=== PATIENT | female | born 1985 | race African-American/Black ===

== ENCOUNTER 2016-06-13 19:43 | Inpatient (IN) | payer MEDICAID ==
[~2016-06-13] VITALS: Ht 165.1 cm; Wt 56.9 kg
[~2016-06-13 19:43] MED LIST: FOLI-17 PO; HYDR500C3 PO; OXYC20TA42 PO
[2016-06-13] MEDS ORDERED: SODIUM CHLORIDE 0.9% 1,000ML IVBOLUS ONE (20:30)
[2016-06-13] MEDS ORDERED: SODIUM CHLORIDE FLUSH 10ML SYR IVF ONE (20:30)
[2016-06-13] MEDS ORDERED: SODIUM CHLORIDE 0.9% 1,000 ML IV ONE (20:34)
[2016-06-13] MEDS ORDERED: ONDANSETRON 2MG/ML, 2ML IVPush ONE (21:00)
[2016-06-13] MEDS ORDERED: MORPHINE SULFATE 4 MG/ML, 1ML IVPush PRN (21:00)
[2016-06-13] MEDS ORDERED: ONDANSETRON 2MG/ML, 2ML ONE (21:38)
[2016-06-13] MEDS ORDERED: MORPHINE SULFATE 4 MG/ML, 1ML ONE (21:38)
[2016-06-13 21:41] LABS: ASPARTATE AMINO TRANSFERASE 27 U/L (15-37); BLOOD UREA NITROGEN 5 mg/dL (7-18)
[2016-06-13 22:23] LABS: DIFF TOTAL CELLS COUNTED 100 CELL DIFF
[2016-06-13 22:25] LABS: ANISOCYTOSIS 2+; MICROCYTOSIS 1+; POLYCHROMASIA 1+; SICKLE CELLS 2+; TARGET CELLS 1+; VERIFY COUNTS? YES
[2016-06-13 22:26] LABS: HOWELL-JOLLY BODIES 1+
[2016-06-13] MEDS ORDERED: ACETAMINOPHEN 325 MG TABLET PO PRN (23:00)
[2016-06-13] MEDS ORDERED: DIPHENHYDRAMINE 50 MG/ML, 1ML IVPush PRN (23:00)
[2016-06-13] MEDS ORDERED: ONDANSETRON 2MG/ML, 2ML IVP PRN (23:00)
[2016-06-13] MEDS: HYDROXYUREA 500 MG CAPSULE PO SCH (23:00)
[2016-06-13] MEDS: SODIUM CHLORIDE 0.9% 1,000 ML IV SCH (23:20)
[2016-06-13] MEDS: HYDROmorphone 2 MG/ML, 1ML IV PRN (23:38)
[2016-06-13 23:40] VITALS: BP 107/67
[2016-06-14 00:34] VITALS: BP 112/71
[2016-06-14] MEDS: HYDROmorphone 2 MG/ML, 1ML IV PRN ×5 (03:49→20:36)
[2016-06-14] MEDS: SODIUM CHLORIDE 0.9% 1,000 ML IV SCH ×3 (05:36→20:35)
[2016-06-14 05:54] LABS: ASPARTATE AMINO TRANSFERASE 29 U/L (15-37)
[2016-06-14 05:57] LABS: BLOOD UREA NITROGEN 7 mg/dL (7-18)
[2016-06-14 06:35] VITALS: BP 102/62
[2016-06-14 06:50] LABS: DIFF TOTAL CELLS COUNTED 100 CELL DIFF
[2016-06-14 06:58] LABS: ANISOCYTOSIS 2+; MICROCYTOSIS 1+; POLYCHROMASIA 1+; SICKLE CELLS 2+; TARGET CELLS 1+; VERIFY COUNTS? YES
[2016-06-14 07:05] LABS: HOWELL-JOLLY BODIES 1+
[2016-06-14] MEDS: HYDROXYUREA 500 MG CAPSULE PO SCH ×2 (11:06→20:48)
[2016-06-14 13:31] VITALS: BP 109/68
[2016-06-14 20:38] VITALS: BP 114/72
[2016-06-15] MEDS: HYDROmorphone 2 MG/ML, 1ML IV PRN ×3 (00:29→07:55)
[2016-06-15 02:17] VITALS: BP 112/78
[2016-06-15] MEDS: SODIUM CHLORIDE 0.9% 1,000 ML IV SCH ×2 (03:30→18:40)
[2016-06-15 05:01] LABS: BLOOD UREA NITROGEN 5 mg/dL (7-18)
[2016-06-15 05:42] LABS: DIFF TOTAL CELLS COUNTED 100 CELL DIFF
[2016-06-15 05:44] LABS: ANISOCYTOSIS 2+; VERIFY COUNTS? YES
[2016-06-15 05:45] LABS: POLYCHROMASIA 1+
[2016-06-15 05:46] LABS: HOWELL-JOLLY BODIES 1+; SICKLE CELLS 2+
[2016-06-15] MEDS: HYDROXYUREA 500 MG CAPSULE PO SCH ×2 (07:56→22:00)
[2016-06-15 08:00] VITALS: BP 116/71
[2016-06-15] MEDS ORDERED: OXYcodone IR 5MG TABLET PO PRN (10:00)
[2016-06-15] MEDS ORDERED: BISACODYL 10 MG SUPP PR PRN (10:00)
[2016-06-15] MEDS: POLYETHYLENE GLYCOL 17 GM PACKET PO SCH (11:35)
[2016-06-15] MEDS: DOCUSATE 100 MG CAPSULE PO SCH (11:35)
[2016-06-15] MEDS ORDERED: OXYC20TA2 PO (11:56)
[2016-06-15 13:45] VITALS: BP 103/61
[2016-06-15] MEDS: OXYcodone IR 5MG TABLET PO PRN ×3 (14:48→23:07)
[2016-06-15 20:25] VITALS: BP 113/69
[2016-06-16 01:46] VITALS: BP 101/54
[2016-06-16] MEDS: SODIUM CHLORIDE 0.9% 1,000 ML IV SCH ×2 (02:45→07:50)
[2016-06-16] MEDS: OXYcodone IR 5MG TABLET PO PRN (06:16)
[2016-06-16 07:00] VITALS: BP 114/71
[2016-06-16] MEDS: HYDROXYUREA 500 MG CAPSULE PO SCH (08:06)
[2016-06-16] MEDS: POLYETHYLENE GLYCOL 17 GM PACKET PO SCH (08:07)
[2016-06-16] MEDS: DOCUSATE 100 MG CAPSULE PO SCH (08:07)
[2016-06-16] MEDS ORDERED: OXYC20TA2 PO (09:37)
== END 2016-06-16 10:45 | disposition home or self-care (01) | DRG 812 ==
LOC: ED 21:55 → EDIP 22:11 → 3NE 23:10 → 3NW 06-14 08:36
PROVIDERS: ADMIT Internal Medicine
DX: D57.00 Hb-SS disease with crisis, unspecified (principal); E87.6 Hypokalemia; G89.29 Other chronic pain; M54.5 Low back pain; K59.00 Constipation, unspecified; D72.829 Elevated white blood cell count, unspecified; Z90.49 Acquired absence of other specified parts of digestive tract; Z88.0 Allergy status to penicillin; Z79.899 Other long term (current) drug therapy; Z83.2 Family history of diseases of the blood and blood-forming organs and certain disorders involving the immune mechanism
CPT/HCPCS: 36415; 71010; 72072; 76700; 80048; 80053; 81003; 83605; 83690; 83735; 84703; 85018; 85025; 85045; 86850; 86900; 86902; 86922; 86923; 87040; 93005; 96361; 96374; 96375; J1170; J2405; J7030

== ENCOUNTER 2016-07-05 23:40 | Emergency (ER) | payer MEDICAID ==
[~2016-07-05] VITALS: Ht 165.1 cm; Wt 58.6 kg
[~2016-07-05 23:40] MED LIST changes: +OXYC20TA2 PO
[2016-07-06 01:01] VITALS: BP 104/60
== END 2016-07-06 02:00 | disposition home or self-care (01) ==
LOC: ED 23:59
DX: S90.31XA Contusion of right foot, initial encounter (principal); W20.8XXA Other cause of strike by thrown, projected or falling object, initial encounter; Y93.89 Activity, other specified; Y92.099 Unspecified place in other non-institutional residence as the place of occurrence of the external cause; Y99.8 Other external cause status
CPT/HCPCS: 99284

== ENCOUNTER 2016-08-10 20:18 | Inpatient (IN) | payer MEDICAID ==
[~2016-08-10] VITALS: Ht 165.1 cm; Wt 59.6 kg
[2016-08-10] MEDS ORDERED: SODIUM CHLORIDE FLUSH 10ML SYR IVF ONE (21:00)
[2016-08-10] MEDS ORDERED: ONDANSETRON 2MG/ML, 2ML IVPush ONE (21:00)
[2016-08-10] MEDS ORDERED: SODIUM CHLORIDE 0.9% 1,000ML IV ONE (21:00)
[2016-08-10] MEDS ORDERED: MORPHINE SULFATE 4 MG/ML, 1ML IVPush PRN (21:00)
[2016-08-10] MEDS ORDERED: MORPHINE SULFATE 4 MG/ML, 1ML ONE (21:04)
[2016-08-10] MEDS ORDERED: ONDANSETRON 2MG/ML, 2ML ONE (21:05)
[2016-08-10 21:18] LABS: ASPARTATE AMINO TRANSFERASE 33 U/L (15-37); BLOOD UREA NITROGEN 5 mg/dL (7-18)
[2016-08-10] MEDS ORDERED: FOLI-17 PO (21:34)
[2016-08-10 22:13] LABS: DIFF TOTAL CELLS COUNTED 100 CELL DIFF
[2016-08-10 22:19] LABS: ANISOCYTOSIS 2+; HOWELL-JOLLY BODIES 1+; POLYCHROMASIA 1+; SICKLE CELLS 2+; VERIFY COUNTS? YES
[2016-08-10] MEDS ORDERED: KETOROLAC 30 MG/1 ML ONE (23:27)
[2016-08-10] MEDS ORDERED: KETOROLAC 30 MG/1 ML IVPush ONE (23:30)
[2016-08-10] MEDS ORDERED: SODIUM CHLORIDE 0.9% 1,000 ML IV ONE (23:33)
[2016-08-11] MEDS ORDERED: MORPHINE SULFATE 4 MG/ML, 1ML IVPush PRN
[2016-08-11] MEDS ORDERED: HYDROmorphone PCA 30 MG/30 ML IV PRN ×2 (00:30→10:30)
[2016-08-11] MEDS ORDERED: PROMETHAZINE 25 MG/ML, 1ML IM PRN (00:30)
[2016-08-11] MEDS ORDERED: ONDANSETRON 2MG/ML, 2ML IVPush PRN ×2 (00:30)
[2016-08-11 01:30] VITALS: BP 103/59
[2016-08-11] MEDS: SODIUM CHLORIDE 0.9% 1,000 ML IV SCH ×4 (01:37→20:24)
[2016-08-11] MEDS: HYDROmorphone 2 MG/ML, 1ML IVPush PRN ×3 (02:26→10:23)
[2016-08-11 02:32] VITALS: BP 103/59
[2016-08-11] MEDS: ENOXAPARIN 40 MG/0.4 ML SQ SCH (06:35)
[2016-08-11 08:17] VITALS: BP 99/58
[2016-08-11] MEDS: SENNA/DOCUSATE TABLET PO SCH (10:23)
[2016-08-11] MEDS: FOLIC ACID 1 MG TABLET PO SCH (10:23)
[2016-08-11] MEDS: HYDROXYUREA 500 MG CAPSULE PO SCH (11:13)
[2016-08-11 13:42] VITALS: BP 98/51
[2016-08-11 16:06] VITALS: BP 108/69
[2016-08-11 19:48] VITALS: BP 98/53
[2016-08-12] MEDS: SODIUM CHLORIDE 0.9% 1,000 ML IV SCH ×4 (02:30→22:52)
[2016-08-12 02:40] VITALS: BP 94/55
[2016-08-12 07:30] VITALS: BP 103/64
[2016-08-12] MEDS ORDERED: HYDROmorphone PCA 30 MG/30 ML IV PRN ×2 (08:30→13:00)
[2016-08-12] MEDS: HYDROXYUREA 500 MG CAPSULE PO SCH (08:54)
[2016-08-12] MEDS: FOLIC ACID 1 MG TABLET PO SCH (08:55)
[2016-08-12] MEDS: SULFAMETH./TRIMETHOPRIM DS 800MG/160MG TABLET PO SCH ×2 (08:55→20:13)
[2016-08-12] MEDS: SENNA/DOCUSATE TABLET PO SCH (08:56)
[2016-08-12] MEDS: ENOXAPARIN 40 MG/0.4 ML SQ SCH (08:56)
[2016-08-12 14:26] VITALS: BP_SYST 94; BP_DIAS 53; BP_DIAS 54
[2016-08-12 17:10] VITALS: BP 106/68
[2016-08-12 18:49] VITALS: BP 103/65
[2016-08-12] MEDS: POLYETHYLENE GLYCOL 17 GM PACKET PO PRN (20:12)
[2016-08-13 02:40] VITALS: BP 100/65
[2016-08-13] MEDS: SODIUM CHLORIDE 0.9% 1,000 ML IV SCH ×3 (04:39→21:40)
[2016-08-13 07:43] VITALS: BP 105/65
[2016-08-13] MEDS: SULFAMETH./TRIMETHOPRIM DS 800MG/160MG TABLET PO SCH ×2 (08:57→20:19)
[2016-08-13] MEDS: FOLIC ACID 1 MG TABLET PO SCH (08:57)
[2016-08-13] MEDS: ENOXAPARIN 40 MG/0.4 ML SQ SCH (08:57)
[2016-08-13] MEDS: SENNA/DOCUSATE TABLET PO SCH (08:58)
[2016-08-13] MEDS: HYDROXYUREA 500 MG CAPSULE PO SCH (09:04)
[2016-08-13 13:54] VITALS: BP 96/60
[2016-08-13] MEDS: HYDROmorphone 1 MG/ML, 1ML IV PRN ×3 (15:09→21:39)
[2016-08-13 19:29] VITALS: BP 111/61
[2016-08-13] MEDS: POLYETHYLENE GLYCOL 17 GM PACKET PO PRN (20:19)
[2016-08-14 01:04] VITALS: BP 109/62
[2016-08-14] MEDS: HYDROmorphone 1 MG/ML, 1ML IV PRN ×3 (01:10→09:28)
[2016-08-14] MEDS: SODIUM CHLORIDE 0.9% 1,000 ML IV SCH (04:00)
[2016-08-14 07:59] VITALS: BP 109/66
[2016-08-14] MEDS: ENOXAPARIN 40 MG/0.4 ML SQ SCH (09:00)
[2016-08-14] MEDS: HYDROXYUREA 500 MG CAPSULE PO SCH (09:26)
[2016-08-14] MEDS: SULFAMETH./TRIMETHOPRIM DS 800MG/160MG TABLET PO SCH (09:26)
[2016-08-14] MEDS: SENNA/DOCUSATE TABLET PO SCH (09:27)
[2016-08-14] MEDS: FOLIC ACID 1 MG TABLET PO SCH (09:27)
== END 2016-08-14 10:21 | disposition home or self-care (01) | DRG 812 ==
LOC: ED 23:04 → EDIP 23:33 → 3NE 08-11 01:13
PROVIDERS: ADMIT Internal Medicine; ATTEND Internal Medicine
DX: D57.00 Hb-SS disease with crisis, unspecified (principal); N39.0 Urinary tract infection, site not specified; Z90.49 Acquired absence of other specified parts of digestive tract; Z88.1 Allergy status to other antibiotic agents; Z88.0 Allergy status to penicillin
CPT/HCPCS: 36415; 80053; 81001; 83690; 84703; 85025; 85045; 85610; 85730; 87086; 96361; 96374; 96375; J1170; J1650; J1885; J2405; J7030

== ENCOUNTER 2016-09-17 20:10 | Emergency (ER) | payer MEDICAID ==
[~2016-09-17] VITALS: Ht 165.1 cm; Wt 58.3 kg
[2016-09-17] MEDS ORDERED: SODIUM CHLORIDE FLUSH 10ML SYR IVF ONE (21:00)
[2016-09-17] MEDS ORDERED: SODIUM CHLORIDE 0.9% 1,000ML IVBOLUS ONE (21:00)
[2016-09-17] MEDS ORDERED: ONDANSETRON 2MG/ML, 2ML IVPush ONE (21:00)
[2016-09-17 21:27] LABS: ASPARTATE AMINO TRANSFERASE 23 U/L (15-37); BLOOD UREA NITROGEN 6 mg/dL (7-18)
[2016-09-17] MEDS ORDERED: MORPHINE SULFATE 4 MG/ML, 1ML ONE ×2 (21:27→22:14)
[2016-09-17] MEDS ORDERED: ONDANSETRON 2MG/ML, 2ML ONE (21:27)
[2016-09-17 21:35] LABS: HCG UR OBC PASS
[2016-09-17] MEDS: MORPHINE SULFATE 4 MG/ML, 1ML IVPush PRN ×2 (21:37→22:15)
[2016-09-17 21:57] LABS: DIFF TOTAL CELLS COUNTED 100 CELL DIFF
[2016-09-17 22:02] LABS: VERIFY COUNTS? YES
[2016-09-17 22:04] LABS: POIKILOCYTOSIS 1+; SICKLE CELLS 2+
[2016-09-17 22:05] LABS: HOWELL-JOLLY BODIES 1+; POLYCHROMASIA 2+
[2016-09-17 22:06] LABS: ANISOCYTOSIS 2+
[2016-09-17] MEDS ORDERED: KETOROLAC 30 MG/1 ML IVPush ONE (23:00)
[2016-09-17] MEDS ORDERED: KETOROLAC 30 MG/1 ML ONE (23:29)
[2016-09-17 23:40] VITALS: BP 108/57
== END 2016-09-18 00:07 | disposition home or self-care (01) ==
LOC: ED 23:37
DX: S39.012A Strain of muscle, fascia and tendon of lower back, initial encounter (principal); D57.00 Hb-SS disease with crisis, unspecified; E87.6 Hypokalemia; Z88.1 Allergy status to other antibiotic agents; Z87.891 Personal history of nicotine dependence; Z88.0 Allergy status to penicillin; Z90.49 Acquired absence of other specified parts of digestive tract; X58.XXXA Exposure to other specified factors, initial encounter; Y93.89 Activity, other specified; Y99.8 Other external cause status; Y92.89 Other specified places as the place of occurrence of the external cause
CPT/HCPCS: 36415; 80053; 81003; 81025; 83690; 85025; 85045; 85610; 96361; 96374; 96375; 96376; 99285; J1885; J2405; J7030

== ENCOUNTER 2016-10-11 14:56 | Inpatient (IN) | payer MEDICAID ==
[~2016-10-11] VITALS: Ht 165.1 cm; Wt 62.0 kg
[2016-10-11] MEDS ORDERED: HYDROmorphone 1 MG/ML, 1ML ONE ×2 (16:03→17:29)
[2016-10-11] MEDS ORDERED: ONDANSETRON 2MG/ML, 2ML ONE (16:03)
[2016-10-11] MEDS: HYDROmorphone 1 MG/ML, 1ML IVPush PRN ×2 (16:13→17:32)
[2016-10-11] MEDS ORDERED: SODIUM CHLORIDE 0.9% 1,000ML IVBOLUS ONE (16:30)
[2016-10-11] MEDS ORDERED: SODIUM CHLORIDE FLUSH 10ML SYR IVF ONE (16:30)
[2016-10-11] MEDS ORDERED: ONDANSETRON 2MG/ML, 2ML IVPush ONE (16:30)
[2016-10-11 16:32] LABS: HEMATOCRIT 28.3 % (34.6-47.8); HEMOGLOBIN 9.6 g/dL (11.7-16.4); WHITE BLOOD COUNT 8.9 x10^3/uL (3.4-10)
[2016-10-11 16:33] LABS: DIFF TOTAL CELLS COUNTED 100 CELL DIFF
[2016-10-11 16:35] LABS: ASPARTATE AMINO TRANSFERASE 28 U/L (15-37); BLOOD UREA NITROGEN 4 mg/dL (7-18)
[2016-10-11 16:50] LABS: ANISOCYTOSIS 2+; POLYCHROMASIA 1+
[2016-10-11 16:51] LABS: POIKILOCYTOSIS 2+; SICKLE CELLS 2+
[2016-10-11 16:52] LABS: HOWELL-JOLLY BODIES 1+; LARGE PLATELETS 1+
[2016-10-11 16:54] LABS: VERIFY COUNTS? YES
[2016-10-11] MEDS ORDERED: SODIUM CHLORIDE 0.9%, 500ML IVBOLUS ONE (17:30)
[2016-10-11 18:26] VITALS: BP 104/55
[2016-10-11] MEDS ORDERED: ENALAPRILAT 1.25 MG/ML, 2ML IVPush PRN (19:00)
[2016-10-11] MEDS ORDERED: TEMAZEPAM 15 MG CAPSULE PO PRN (19:00)
[2016-10-11] MEDS ORDERED: ACETAMINOPHEN 325 MG TABLET PO PRN (19:00)
[2016-10-11 19:55] VITALS: BP 101/54
[2016-10-11] MEDS: SODIUM CHLORIDE 0.9% 1,000 ML IV SCH (20:15)
[2016-10-11] MEDS: ENOXAPARIN 40 MG/0.4 ML SQ SCH (20:16)
[2016-10-11] MEDS: HYDROmorphone 2 MG/ML, 1ML IVPush PRN (21:34)
[2016-10-12] MEDS: HYDROmorphone 2 MG/ML, 1ML IVPush PRN ×7 (01:14→22:44)
[2016-10-12] MEDS: SODIUM CHLORIDE 0.9% 1,000 ML IV SCH ×4 (01:15→22:44)
[2016-10-12 01:55] VITALS: BP 104/52
[2016-10-12 05:21] LABS: HEMOGLOBIN 8.5 g/dL (11.7-16.4); WHITE BLOOD COUNT 10.2 x10^3/uL (3.4-10)
[2016-10-12 05:33] LABS: BLOOD UREA NITROGEN 5 mg/dL (7-18)
[2016-10-12 06:11] LABS: DIFF TOTAL CELLS COUNTED 100 CELL DIFF
[2016-10-12 06:13] LABS: VERIFY COUNTS? YES
[2016-10-12 06:14] LABS: ANISOCYTOSIS 2+; POIKILOCYTOSIS 2+; POLYCHROMASIA 1+
[2016-10-12 06:15] LABS: OVALOCYTES 1+; TARGET CELLS 1+
[2016-10-12 06:17] LABS: SICKLE CELLS 2+
[2016-10-12 06:19] LABS: LARGE PLATELETS 1+
[2016-10-12 08:19] VITALS: BP 103/56
[2016-10-12] MEDS: ONDANSETRON 2MG/ML, 2ML IVPush PRN (08:32)
[2016-10-12 14:48] LABS: BLOOD UREA NITROGEN 5 mg/dL (7-18)
[2016-10-12 14:49] VITALS: BP 106/46
[2016-10-12 14:51] LABS: ASPARTATE AMINO TRANSFERASE 22 U/L (15-37)
[2016-10-12] MEDS: ENOXAPARIN 40 MG/0.4 ML SQ SCH (18:03)
[2016-10-12 19:11] VITALS: BP 108/58
[2016-10-13] MEDS: HYDROmorphone 2 MG/ML, 1ML IVPush PRN ×6 (02:06→21:31)
[2016-10-13 02:12] VITALS: BP 105/58
[2016-10-13 04:04] VITALS: BP 94/56
[2016-10-13] MEDS: SODIUM CHLORIDE 0.9% 1,000 ML IV SCH ×4 (04:59→20:00)
[2016-10-13 06:17] LABS: ASPARTATE AMINO TRANSFERASE 14 U/L (15-37); BLOOD UREA NITROGEN 4 mg/dL (7-18)
[2016-10-13 06:20] LABS: HEMATOCRIT 24.5 % (34.6-47.8); HEMOGLOBIN 8.2 g/dL (11.7-16.4); WHITE BLOOD COUNT 9.3 x10^3/uL (3.4-10)
[2016-10-13 06:47] LABS: DIFF TOTAL CELLS COUNTED 100 CELL DIFF
[2016-10-13 06:55] LABS: ANISOCYTOSIS 2+; VERIFY COUNTS? YES
[2016-10-13 06:56] LABS: OVALOCYTES 1+; POIKILOCYTOSIS 2+; POLYCHROMASIA 1+
[2016-10-13 06:57] LABS: SICKLE CELLS 2+
[2016-10-13 06:58] LABS: TARGET CELLS 2+
[2016-10-13 06:59] LABS: LARGE PLATELETS 1+
[2016-10-13 07:09] VITALS: BP 110/59
[2016-10-13] MEDS: ONDANSETRON 2MG/ML, 2ML IVPush PRN ×2 (08:22→14:54)
[2016-10-13] MEDS: OXYcodone IR 5MG TABLET PO SCH ×5 (10:00→23:10)
[2016-10-13] MEDS: FOLIC ACID 1 MG TABLET PO SCH (10:00)
[2016-10-13] MEDS: HYDROXYUREA 500 MG CAPSULE PO SCH ×3 (10:00→22:50)
[2016-10-13 14:04] VITALS: BP 110/63
[2016-10-13 14:06] VITALS: BP 130/87
[2016-10-13] MEDS: ENOXAPARIN 40 MG/0.4 ML SQ SCH (17:27)
[2016-10-13 19:26] VITALS: BP 119/58
[2016-10-14] MEDS: OXYcodone IR 5MG TABLET PO SCH ×3 (07:00→12:27)
[2016-10-14] MEDS: SODIUM CHLORIDE 0.9% 1,000 ML IV SCH ×3 (08:35→22:30)
[2016-10-14] MEDS: FOLIC ACID 1 MG TABLET PO SCH (08:35)
[2016-10-14 08:37] VITALS: BP 107/69
[2016-10-14] MEDS: HYDROXYUREA 500 MG CAPSULE PO SCH ×3 (10:04→21:38)
[2016-10-14] MEDS: HYDROmorphone 2 MG/ML, 1ML IVPush PRN ×2 (10:41→16:05)
[2016-10-14] MEDS: ONDANSETRON 2MG/ML, 2ML IVPush PRN ×2 (12:27→18:22)
[2016-10-14 13:30] VITALS: BP 113/65
[2016-10-14] MEDS: ENOXAPARIN 40 MG/0.4 ML SQ SCH (16:47)
[2016-10-14] MEDS: OXYcodone IR 5MG TABLET PO PRN (18:22)
[2016-10-14 19:16] VITALS: BP 105/65
[2016-10-14] MEDS ORDERED: HYDROmorphone 2 MG/ML, 1ML IVPush PRN (20:00)
[2016-10-15] MEDS: OXYcodone IR 5MG TABLET PO PRN ×3 (00:35→08:20)
[2016-10-15 02:00] VITALS: BP 103/64
[2016-10-15 04:25] LABS: HEMATOCRIT 24.7 % (34.6-47.8); HEMOGLOBIN 8.1 g/dL (11.7-16.4); WHITE BLOOD COUNT 9.8 x10^3/uL (3.4-10)
[2016-10-15 04:29] LABS: BLOOD UREA NITROGEN 5 mg/dL (7-18)
[2016-10-15 04:33] LABS: ASPARTATE AMINO TRANSFERASE 22 U/L (15-37)
[2016-10-15 04:56] LABS: DIFF TOTAL CELLS COUNTED 100 CELL DIFF
[2016-10-15] MEDS: SODIUM CHLORIDE 0.9% 1,000 ML IV SCH ×2 (05:00→11:30)
[2016-10-15 05:01] LABS: ANISOCYTOSIS 2+; OVALOCYTES 1+; POIKILOCYTOSIS 2+; POLYCHROMASIA 1+; TARGET CELLS 2+
[2016-10-15 05:02] LABS: SICKLE CELLS 2+
[2016-10-15 05:03] LABS: LARGE PLATELETS 1+
[2016-10-15 05:04] LABS: VERIFY COUNTS? YES
[2016-10-15 07:45] VITALS: BP 114/72
[2016-10-15] MEDS: FOLIC ACID 1 MG TABLET PO SCH (09:33)
[2016-10-15] MEDS: HYDROXYUREA 500 MG CAPSULE PO SCH (09:39)
== END 2016-10-15 11:45 | disposition home or self-care (01) | DRG 812 ==
LOC: ED 15:26 → EDIP 17:12 → 4NOR 18:17 → 3NW 10-13 03:46 → DCLOUNGE 10-15 11:30
PROVIDERS: ADMIT Hospitalist; ATTEND Internal Medicine
DX: D57.00 Hb-SS disease with crisis, unspecified (principal); E44.1 Mild protein-calorie malnutrition; R17 Unspecified jaundice; E86.0 Dehydration; D59.9 Acquired hemolytic anemia, unspecified; E87.6 Hypokalemia; M54.9 Dorsalgia, unspecified; R19.7 Diarrhea, unspecified; R50.9 Fever, unspecified; Z88.1 Allergy status to other antibiotic agents; Z68.22 Body mass index [BMI] 22.0-22.9, adult; Z90.49 Acquired absence of other specified parts of digestive tract
CPT/HCPCS: 36415; 71010; 80048; 80053; 81001; 82248; 83605; 83735; 85025; 85045; 96361; 96374; 96375; 96376; J1170; J1650; J2405; J7030; J7040

== ENCOUNTER 2016-11-13 07:32 | Emergency (ER) | payer MEDICAID ==
[~2016-11-13] VITALS: Ht 165.1 cm; Wt 58.0 kg
[2016-11-13] MEDS ORDERED: MORPHINE SULFATE 4 MG/ML, 1ML ONE ×2 (08:27→11:45)
[2016-11-13] MEDS ORDERED: ONDANSETRON 2MG/ML, 2ML ONE (08:27)
[2016-11-13] MEDS ORDERED: KETOROLAC 30 MG/1 ML ONE (08:27)
[2016-11-13] MEDS ORDERED: ONDANSETRON 2MG/ML, 2ML IVPush ONE (08:30)
[2016-11-13] MEDS ORDERED: KETOROLAC 30 MG/1 ML IVPush ONE (08:30)
[2016-11-13] MEDS ORDERED: SODIUM CHLORIDE 0.9% 1,000ML IVBOLUS ONE (08:30)
[2016-11-13] MEDS ORDERED: SODIUM CHLORIDE FLUSH 10ML SYR IVF ONE (08:30)
[2016-11-13] MEDS: MORPHINE SULFATE 4 MG/ML, 1ML IVPush PRN ×2 (08:35→11:49)
[2016-11-13 08:40] LABS: BLOOD UREA NITROGEN 5 mg/dL (7-18)
[2016-11-13 08:46] LABS: HEMATOCRIT 29.8 % (34.6-47.8); HEMOGLOBIN 10.1 g/dL (11.7-16.4); WHITE BLOOD COUNT 11.7 x10^3/uL (3.4-10)
[2016-11-13 08:47] LABS: ASPARTATE AMINO TRANSFERASE 38 U/L (15-37)
[2016-11-13 08:56] LABS: DIFF TOTAL CELLS COUNTED 100 CELL DIFF
[2016-11-13 09:01] LABS: HOWELL-JOLLY BODIES 1+; VERIFY COUNTS? YES
[2016-11-13 09:02] LABS: ANISOCYTOSIS 2+; HYPOCHROMIA 1+; POIKILOCYTOSIS 2+; POLYCHROMASIA 1+; SICKLE CELLS 2+; TARGET CELLS 1+
[2016-11-13 12:30] VITALS: BP 104/56
== END 2016-11-13 12:34 | disposition home or self-care (01) ==
LOC: ED 10:38
DX: R10.33 Periumbilical pain (principal); D57.00 Hb-SS disease with crisis, unspecified; Z90.49 Acquired absence of other specified parts of digestive tract
CPT/HCPCS: 36415; 80053; 81001; 83690; 84703; 85025; 85045; 87086; 96361; 96374; 96375; 96376; 99284; J1885; J2405; J7030

== ENCOUNTER 2017-11-03 21:14 | Emergency (ER) | payer MEDICAID ==
[~2017-11-03] VITALS: Ht 165.1 cm; Wt 56.0 kg
[2017-11-03] MEDS ORDERED: KETOROLAC 30 MG/1 ML ONE (22:33)
[2017-11-03] MEDS ORDERED: KETOROLAC 30 MG/1 ML IM ONE (23:00)
[2017-11-03 23:06] LABS: ALANINE AMINOTRANSFERASE 19 U/L (12-78); ALBUMIN 4.1 g/dL (3.4-5.0); ANION GAP 8 mmol/L (5-15); CALCIUM 8.7 mg/dL (8.5-10.1); CHLORIDE 113 mmol/L (98-107); CREATININE 0.47 mg/dL (0.55-1.02)
[2017-11-03 23:10] LABS: MEAN CORPUSCULAR HEMOGLOBIN 35.8 pg (27.0-34.8); MEAN CORPUSCULAR VOLUME 105.3 fL (80-100); MEAN PLATELET VOLUME 7.4 fL (7.4-10.4); PLATELET COUNT 471 x10^3/uL (130-400); RED BLOOD COUNT 2.72 x10^6/uL (3.82-5.3); RED CELL DISTRIBUTION WIDTH 18.4 % (9.6-15.2)
[2017-11-03 23:11] LABS: ALKALINE PHOSPHATASE 100 U/L (45-117); BILIRUBIN,TOTAL 4.8 mg/dL (0.2-1.0); TOTAL PROTEIN 7.7 g/dL (6.4-8.2)
[2017-11-03 23:25] LABS: MD YES
[2017-11-03 23:34] LABS: BASOS#(MANUAL) 0.09 x10^3/uL (0-0.1); BASOS% (MANUAL) 1 % (0-1); LYMPH#(MANUAL) 2.11 x10^3/uL (1-3.4); LYMPHS% (MANUAL) 24 % (22-44); MONOS#(MANUAL) 0.53 x10^3/uL (0.3-2.7); MONOS% (MANUAL) 6 % (2-9); NRBC % (MANUAL) 2 % (0-1); SEG#(MANUAL) 6.07 x10^3/uL (1.8-6.8); SEGS% (MANUAL) 69 % (42-75)
[2017-11-03 23:35] LABS: ANISOCYTOSIS 1+
[2017-11-03 23:36] LABS: HYPOCHROMIA 1+; OVALOCYTES 1+; POLYCHROMASIA 1+
[2017-11-03 23:37] LABS: TARGET CELLS 2+
[2017-11-03 23:41] LABS: SICKLE CELLS 1+
[2017-11-03 23:45] LABS: <PLATELET ESTIMATE> INCREASED; <PLT MORPHOLOGY> NORMAL PLT MORPH; PAPPENHEIMER BODIES 1+
[2017-11-03 23:54] VITALS: BP 119/68
[2017-11-04] MEDS ORDERED: OXYcodone/APAP 5/325MG TABLET ONE (00:17)
[2017-11-04] MEDS ORDERED: OXYcodone/APAP 5/325MG TABLET PO ONE (00:30)
== END 2017-11-04 00:42 | disposition home or self-care (01) ==
LOC: ED 23:59
DX: D57.1 Sickle-cell disease without crisis (principal); R51 Headache; R10.10 Upper abdominal pain, unspecified; Z90.49 Acquired absence of other specified parts of digestive tract; Z88.0 Allergy status to penicillin
CPT/HCPCS: 36415; 80053; 83690; 84703; 85025; 96372; 99284; J1885

== ENCOUNTER 2018-02-23 05:47 | Inpatient (IN) | payer MEDICAID ==
[~2018-02-23] VITALS: Ht 165.1 cm; Wt 60.2 kg
--- NOTE | 2018-02-23 06:15 | NUR ---
PT TO RESTROOM WITH STEADY GAIT.
[2018-02-23] MEDS ORDERED: SODIUM CHLORIDE 0.9% 1,000 ML IV ONE (06:20)
[2018-02-23] MEDS ORDERED: ONDANSETRON 2MG/ML, 2ML IVPush ONE (06:30)
--- NOTE | 2018-02-23 06:30 | NUR ---
PROVIDER TO BEDSIDE FOR PT EVAL COMPLETE. PT TO HAVE IV AND MEDS ETC.
--- NOTE | 2018-02-23 06:50 | NUR ---
PT REPORTS HAVING LOW BACK PAIN WHICH IS NOT A NEW EVENT WITH HER SICKLE CELL ANEMIA BUT PT STATES THE PAST FEW DAYS PT HAVING LOW ABD PAIN. PT REPORTS NAUSEA, DENIES EMESIS OR DIARRHEA. PT A/OX 4, BREATHING E/U. PT CONVERSING WELL. WILL GET IV AND MEDS GIVEN. THIS RN AT BEDSIDE.
[2018-02-23] MEDS ORDERED: ONDANSETRON 2MG/ML, 2ML ONE ×2 (07:00→08:38)
[2018-02-23] MEDS ORDERED: HYDROmorphone 2 MG/ML, 1ML ONE ×3 (07:01→08:38)
[2018-02-23] MEDS: HYDROmorphone 2 MG/ML, 1ML IVPush PRN ×2 (07:02→08:41)
--- NOTE | 2018-02-23 07:08 | NUR ---
IV PLACED, MEDS GIVEN PER ORDERS, SEE EMAR. PT ON VS MONITORING, VSS. NS INFUSING WITHOUT DIFFICULTY. WARM BLANKET PROVIDED. REPORT TO [facility].
[2018-02-23 07:13] LABS: ALANINE AMINOTRANSFERASE 16 U/L (12-78); ALBUMIN 4.5 g/dL (3.4-5.0); ANION GAP 8 mmol/L (5-15); CALCIUM 8.9 mg/dL (8.5-10.1); CHLORIDE 113 mmol/L (98-107); CREATININE 0.57 mg/dL (0.55-1.02)
[2018-02-23 07:16] LABS: ALKALINE PHOSPHATASE 84 U/L (45-117); BILIRUBIN,TOTAL 7.2 mg/dL (0.2-1.0); TOTAL PROTEIN 7.7 g/dL (6.4-8.2)
--- NOTE | 2018-02-23 07:20 | NUR ---
IVF INFUSING W/O DIFFICULTY, VSS, PT RATES PAIN 4/10. LABS PENDING.
[2018-02-23 07:27] LABS: RED BLOOD COUNT 2.73 x10^6/uL (3.82-5.3)
[2018-02-23 07:30] LABS: ABSOLUTE RETICS # 0.182 x10^6/uL (0.5-2.5); MEAN CORPUSCULAR HEMOGLOBIN 35.3 pg (27.0-34.8); MEAN CORPUSCULAR HGB CONC 32.9 g/dL (32.4-35.8); MEAN CORPUSCULAR VOLUME 107.3 fL (80-100); MEAN PLATELET VOLUME 7.9 fL (7.4-10.4); PLATELET COUNT 401 x10^3/uL (130-400); RED BLOOD COUNT 2.73 x10^6/uL (3.82-5.3); RETICULOCYTE COUNT % 6.67 % (0.5-1.5)
[2018-02-23 07:41] LABS: MD YES
[2018-02-23 07:43] LABS: RED CELL DISTRIBUTION WIDTH 19.2 % (9.6-15.2)
[2018-02-23 07:48] LABS: <PLATELET ESTIMATE> INCREASED; ANISOCYTOSIS 1+; EOS% (MANUAL) 1 % (1-7); LYMPH#(MANUAL) 1.39 x10^3/uL (1-3.4); LYMPHS% (MANUAL) 14 % (22-44); MONOS#(MANUAL) 1.19 x10^3/uL (0.3-2.7); MONOS% (MANUAL) 12 % (2-9); NRBC % (MANUAL) 1 % (0-1); OVALOCYTES 1+; POLYCHROMASIA 1+; SEG#(MANUAL) 7.23 x10^3/uL (1.8-6.8); SEGS% (MANUAL) 73 % (42-75); SICKLE CELLS 1+
[2018-02-23 07:49] LABS: TARGET CELLS 1+
[2018-02-23 07:50] LABS: LARGE PLATELETS 1+
[2018-02-23 07:51] LABS: PAPPENHEIMER BODIES 1+
[2018-02-23 07:52] LABS: HOWELL-JOLLY BODIES 1+
[2018-02-23] MEDS ORDERED: MAALOX/HYOSCYAMINE/LIDOCAINE 45 ML BTL PO ONE (08:00)
--- NOTE | 2018-02-23 08:00 | NUR ---
PT AWARE OF NEED TO PROVIDE URINE SAMPLE
[2018-02-23] MEDS ORDERED: DEFE360T PO (08:25)
--- NOTE | 2018-02-23 08:43 | NUR ---
PT MED NOTED FOR PAIN 06/24. CALL LIGHT W/I REACH.
[2018-02-23] MEDS ORDERED: ENOXAPARIN 40 MG/0.4 ML ONE (09:53)
[2018-02-23] MEDS ORDERED: BISACODYL 10 MG SUPP PR PRN (10:00)
[2018-02-23] MEDS ORDERED: ZOLPIDEM 5MG TABLET PO PRN (10:00)
[2018-02-23] MEDS ORDERED: hydrALAzine 20 MG/ML, 1ML IVPush PRN (10:00)
[2018-02-23] MEDS ORDERED: HYDROmorphone 2 MG/ML, 1ML IVPush PRN (10:00)
[2018-02-23] MEDS ORDERED: ONDANSETRON ODT 4 MG PO PRN (10:00)
[2018-02-23] MEDS ORDERED: LIDODERM 5% PATCH TD PRN (10:00)
[2018-02-23] MEDS ORDERED: POLYETHYLENE GLYCOL 17 GM PACKET PO PRN (10:00)
[2018-02-23] MEDS ORDERED: DOCUSATE 100 MG CAPSULE PO PRN (10:00)
[2018-02-23] MEDS ORDERED: ONDANSETRON 2MG/ML, 2ML IVPush PRN (10:00)
[2018-02-23] MEDS ORDERED: ACETAMINOPHEN 325 MG TABLET PO PRN (10:00)
[2018-02-23] MEDS: ENOXAPARIN 40 MG/0.4 ML SQ SCH (10:07)
[2018-02-23] MEDS: SODIUM CHLORIDE 0.9% 1,000 ML IV SCH ×2 (10:07→19:18)
[2018-02-23 10:32] LABS: HCT (SEDRATE) 29.2 % (34.6-47.8)
[2018-02-23 10:36] LABS: HCG UR SG 1.013 (1.003-1.030); MICROSCOPIC NOT IND
[2018-02-23 10:38] LABS: FREE T4 (FREE THYROXINE) 0.79 ng/dL (0.76-1.46); THYROID STIMULATING HORMONE 0.177 mIU/L (0.358-3.740)
[2018-02-23 10:38] LABS: CULTURE INDICATED? NO
[2018-02-23] MEDS: DEFERASIROX 360 MG PO SCH ×3 (11:00→20:19)
[2018-02-23] MEDS ORDERED: OXYcodone IR 5MG TABLET ONE (11:08)
[2018-02-23] MEDS: OXYcodone IR 5MG TABLET PO SCH ×4 (11:09→20:18)
--- NOTE | 2018-02-23 14:14 | NUR ---
LATE ENTRY FOR 1100, PER PHARMACY [facility] MEDICATION IS NOT AVAILABLE IN HOSPITAL. PT INSTRUCTED TO HAVE SOMEONE BRING HER MEDICATION TO HOSPITAL.
[2018-02-23 19:01] VITALS: BP 98/58
[2018-02-23] MEDS: FAMOTIDINE 20 MG TABLET PO SCH (20:19)
[2018-02-24] MEDS: OXYcodone IR 5MG TABLET PO SCH ×5 (00:22→16:09)
[2018-02-24 00:52] VITALS: BP 108/62
[2018-02-24] MEDS: SODIUM CHLORIDE 0.9% 1,000 ML IV SCH ×2 (03:40→12:05)
[2018-02-24] MEDS: DEFERASIROX 360 MG PO SCH ×3 (05:17→15:44)
[2018-02-24 05:28] LABS: CHLORIDE 114 mmol/L (98-107)
[2018-02-24 05:40] LABS: ANION GAP 6 mmol/L (5-15); CALCIUM 7.9 mg/dL (8.5-10.1); CREATININE 0.46 mg/dL (0.55-1.02)
[2018-02-24 05:50] LABS: MEAN CORPUSCULAR HEMOGLOBIN 35.9 pg (27.0-34.8); MEAN CORPUSCULAR HGB CONC 33.6 g/dL (32.4-35.8); MEAN CORPUSCULAR VOLUME 106.8 fL (80-100); MEAN PLATELET VOLUME 7.9 fL (7.4-10.4); PLATELET COUNT 325 x10^3/uL (130-400); RED CELL DISTRIBUTION WIDTH 19.7 % (9.6-15.2)
[2018-02-24 06:08] LABS: MD YES
[2018-02-24 06:16] LABS: ANISOCYTOSIS 1+; EOS% (MANUAL) 4 % (1-7); LYMPH#(MANUAL) 3.15 x10^3/uL (1-3.4); LYMPHS% (MANUAL) 42 % (22-44); MONOS#(MANUAL) 0.68 x10^3/uL (0.3-2.7); MONOS% (MANUAL) 9 % (2-9); SEG#(MANUAL) 3.38 x10^3/uL (1.8-6.8); SEGS% (MANUAL) 45 % (42-75)
[2018-02-24 06:17] LABS: OVALOCYTES 1+; POLYCHROMASIA 1+; SICKLE CELLS 2+; TARGET CELLS 1+
[2018-02-24 06:18] LABS: <PLATELET ESTIMATE> ADEQUATE; LARGE PLATELETS 1+; NRBC % (MANUAL) 1 % (0-1)
[2018-02-24 07:05] VITALS: BP 121/69
[2018-02-24] MEDS ORDERED: HYDROXYUREA 500 MG CAPSULE PO SCH (09:00)
[2018-02-24] MEDS ORDERED: FOLIC ACID 1 MG TABLET PO SCH (09:00)
[2018-02-24] MEDS: FAMOTIDINE 20 MG TABLET PO SCH (09:09)
[2018-02-24] MEDS: ENOXAPARIN 40 MG/0.4 ML SQ SCH (09:10)
[2018-02-24 12:01] LABS: MEAN CORPUSCULAR HEMOGLOBIN 36.1 pg (27.0-34.8); MEAN CORPUSCULAR HGB CONC 34.3 g/dL (32.4-35.8); MEAN CORPUSCULAR VOLUME 105.2 fL (80-100); MEAN PLATELET VOLUME 7.6 fL (7.4-10.4); PLATELET COUNT 349 x10^3/uL (130-400); RED BLOOD COUNT 2.25 x10^6/uL (3.82-5.3); RED CELL DISTRIBUTION WIDTH 21.8 % (9.6-15.2)
[2018-02-24 12:24] LABS: MD YES
[2018-02-24 12:33] LABS: ANISOCYTOSIS 1+; EOS#(MANUAL) 0.18 x10^3/uL (0.0-0.4); EOS% (MANUAL) 2 % (1-7); HYPOCHROMIA 1+; LYMPH#(MANUAL) 3.65 x10^3/uL (1-3.4); LYMPHS% (MANUAL) 41 % (22-44); MONOS#(MANUAL) 0.71 x10^3/uL (0.3-2.7); MONOS% (MANUAL) 8 % (2-9); NRBC % (MANUAL) 2 % (0-1); POLYCHROMASIA 1+; SEG#(MANUAL) 4.36 x10^3/uL (1.8-6.8); SEGS% (MANUAL) 49 % (42-75); SICKLE CELLS 2+; TARGET CELLS 1+
[2018-02-24 12:35] LABS: <PLATELET ESTIMATE> ADEQUATE; LARGE PLATELETS 1+
[2018-02-24 14:01] VITALS: BP 103/63
== END 2018-02-24 16:21 | disposition home or self-care (01) | DRG 812 ==
LOC: ED 07:42 → EDIP 07:43 → ED 08:04 → 3NE 14:31
PROVIDERS: ADMIT Internal Medicine; ATTEND Internal Medicine
DX: D57.00 Hb-SS disease with crisis, unspecified (principal); M54.5 Low back pain; M54.30 Sciatica, unspecified side; R30.0 Dysuria; Z83.2 Family history of diseases of the blood and blood-forming organs and certain disorders involving the immune mechanism; Z90.49 Acquired absence of other specified parts of digestive tract; Z88.1 Allergy status to other antibiotic agents; Z88.5 Allergy status to narcotic agent; Z87.01 Personal history of pneumonia (recurrent)
CPT/HCPCS: 36415; 76700; 80048; 80053; 81003; 81025; 83615; 83690; 84439; 84443; 85025; 85045; 85651; 86850; 86870; 86900; 86902; 86922; 86923; 96361; 96372; 96374; 96375; 96376; 99285; G0378; J1170; J1650; J2405; J7030

== ENCOUNTER 2018-05-31 10:43 | Emergency (ER) | payer MEDICAID ==
[~2018-05-31] VITALS: Ht 165.1 cm; Wt 58.0 kg
[~2018-05-31 10:43] MED LIST changes: +DEFE360T PO
[2018-05-31] MEDS ORDERED: HYDROmorphone 2 MG/ML, 1ML IM PRN ×2 (12:00→14:00)
[2018-05-31 12:13] LABS: ALBUMIN 4.3 g/dL (3.4-5.0); ANION GAP 5 mmol/L (5-15); CALCIUM 8.9 mg/dL (8.5-10.1); CHLORIDE 111 mmol/L (98-107)
[2018-05-31 12:21] LABS: ALANINE AMINOTRANSFERASE 22 U/L (12-78); ALKALINE PHOSPHATASE 83 U/L (45-117); BILIRUBIN,TOTAL 6.5 mg/dL (0.2-1.0); CREATININE 0.64 mg/dL (0.55-1.02); TOTAL PROTEIN 7.6 g/dL (6.4-8.2)
[2018-05-31 12:50] LABS: MEAN CORPUSCULAR HEMOGLOBIN 35.1 pg (27.0-34.8); MEAN CORPUSCULAR HGB CONC 34.4 g/dL (32.4-35.8); MEAN CORPUSCULAR VOLUME 101.9 fL (80-100); MEAN PLATELET VOLUME 7.8 fL (7.4-10.4); PLATELET COUNT 510 x10^3/uL (130-400); RED BLOOD COUNT 2.85 x10^6/uL (3.82-5.3); RED CELL DISTRIBUTION WIDTH 20.6 % (9.6-15.2)
[2018-05-31 13:07] LABS: MD YES
[2018-05-31 13:08] LABS: MICROSCOPIC INDICATED
[2018-05-31 13:10] LABS: EOS#(MANUAL) 0.13 x10^3/uL (0.0-0.4); EOS% (MANUAL) 1 % (1-7); LYMPH#(MANUAL) 1.73 x10^3/uL (1-3.4); LYMPHS% (MANUAL) 13 % (22-44); MONOS#(MANUAL) 0.67 x10^3/uL (0.3-2.7); MONOS% (MANUAL) 5 % (2-9); NRBC % (MANUAL) 1 % (0-1); SEG#(MANUAL) 10.77 x10^3/uL (1.8-6.8); SEGS% (MANUAL) 81 % (42-75)
[2018-05-31 13:11] LABS: ANISOCYTOSIS 1+; HYPOCHROMIA 1+; OVALOCYTES 1+; POLYCHROMASIA 1+; TARGET CELLS 1+
[2018-05-31 13:12] LABS: SICKLE CELLS 1+
[2018-05-31] MEDS ORDERED: HYDROmorphone 1 MG/ML, 1ML VIAL ONE ×2 (13:13→14:17)
[2018-05-31 13:14] LABS: <PLATELET ESTIMATE> INCREASED; HOWELL-JOLLY BODIES 1+; LARGE PLATELETS 1+
[2018-05-31 13:19] LABS: CULTURE INDICATED? YES
--- NOTE | 2018-05-31 13:19 | NUR ---
PT RESTING ON [facility]. MEDICATED PER ORDER. CHART UP FOR RECHECK. ALL CONCERNS ADRESSED.
[2018-05-31 14:22] VITALS: BP 119/58
--- NOTE | 2018-05-31 14:44 | NUR ---
PT REFUSED RX FOR HYDROCODONE. RX DISPOSED IN [facility].
--- NOTE | 2018-05-31 14:46 | NUR ---
Patient/Caregiver given discharge instructions and they have confirmed that they understand the instructions. Patient ambulatory with steady gait. PT LEFT WITH ALL PERSONAL BELONGINGS. PT TO BE TAKEN HOME BY FRIEND.
== END 2018-05-31 14:48 | disposition home or self-care (01) ==
LOC: ED 12:21
DX: M54.6 Pain in thoracic spine (principal); D57.00 Hb-SS disease with crisis, unspecified; Z90.49 Acquired absence of other specified parts of digestive tract; R10.9 Unspecified abdominal pain
CPT/HCPCS: 36415; 80053; 81001; 84703; 85025; 87086; 96372; 99283; J1170

== ENCOUNTER 2018-07-08 13:10 | Emergency (ER) | payer MEDICAID ==
[~2018-07-08] VITALS: Ht 165.1 cm; Wt 58.2 kg
--- NOTE | 2018-07-08 13:34 | NUR ---
TO ROOM FROM LOBBY. NAD.
--- NOTE | 2018-07-08 13:40 | NUR ---
"Bone pain for two days" pain from waist up to ribs on both sides. denies pain in kidney areas. pt states she has chronic low back pain. pt rates pain as 6/10. pt tried tylenol and that did not help. pain worse with movement.
--- NOTE | 2018-07-08 14:00 | NUR ---
ED MD in to see pt
[2018-07-08 14:04] LABS: ALBUMIN 4.4 g/dL (3.4-5.0); ANION GAP 8 mmol/L (5-15); CALCIUM 8.7 mg/dL (8.5-10.1); CHLORIDE 110 mmol/L (98-107); CREATININE 0.64 mg/dL (0.55-1.02); MEAN CORPUSCULAR HEMOGLOBIN 34.3 pg (27.0-34.8); MEAN CORPUSCULAR HGB CONC 31.5 g/dL (32.4-35.8); MEAN CORPUSCULAR VOLUME 108.7 fL (80-100); MEAN PLATELET VOLUME 7.4 fL (7.4-10.4); PLATELET COUNT 362 x10^3/uL (130-400); RED BLOOD COUNT 2.94 x10^6/uL (3.82-5.3); RED CELL DISTRIBUTION WIDTH 19.5 % (9.6-15.2)
[2018-07-08 14:05] LABS: MD YES
[2018-07-08 14:09] LABS: TROPONIN I < 0.015 ng/mL (0.000-0.045)
[2018-07-08] MEDS ORDERED: KETOROLAC 30 MG/1 ML ONE (14:10)
[2018-07-08] MEDS ORDERED: HYDROmorphone 2 MG/ML, 1ML ONE ×2 (14:10→19:20)
--- NOTE | 2018-07-08 14:29 | NUR ---
pt medicated for pain per MD orders. pt provided a warm blanket for painful areas. VS stable. pain 09/24. will reassess pain. no acute distress noted.
[2018-07-08 14:30] LABS: BASOS#(MANUAL) 0.07 x10^3/uL (0-0.1); BASOS% (MANUAL) 1 % (0-1); LYMPH#(MANUAL) 1.45 x10^3/uL (1-3.4); LYMPHS% (MANUAL) 21 % (22-44); MONOS#(MANUAL) 0.41 x10^3/uL (0.3-2.7); MONOS% (MANUAL) 6 % (2-9); SEG#(MANUAL) 4.97 x10^3/uL (1.8-6.8); SEGS% (MANUAL) 72 % (42-75)
[2018-07-08] MEDS ORDERED: KETOROLAC 30 MG/1 ML IM ONE (14:30)
[2018-07-08] MEDS ORDERED: HYDROmorphone 1 MG/ML, 1ML INJ IM ONE (14:30)
[2018-07-08 14:32] LABS: ANISOCYTOSIS 2+; HYPOCHROMIA 1+; OVALOCYTES 1+; POLYCHROMASIA 1+
[2018-07-08 14:33] LABS: TARGET CELLS 1+
[2018-07-08 14:34] LABS: <PLATELET ESTIMATE> ADEQUATE; LARGE PLATELETS 1+; SICKLE CELLS 2+
[2018-07-08 14:51] LABS: RED BLOOD COUNT 2.92 x10^6/uL (3.82-5.3)
--- NOTE | 2018-07-08 14:51 | NUR ---
pt reports pain has decreased to 5/10. pain is mostly in her hips now.
[2018-07-08] MEDS ORDERED: FENTANYL PF 100 MCG/2ML ONE (16:05)
[2018-07-08] MEDS ORDERED: ONDANSETRON 2MG/ML, 2ML ONE (16:05)
--- NOTE | 2018-07-08 16:09 | NUR ---
per er md, start IV to give pain meds that will help pain but not lower the bp any more. iv started, bp is 111/57. medicate for pain per emar orders. hang 1L fluid bolus per er md.
[2018-07-08 16:29] LABS: ABSOLUTE RETICS # 0.138 x10^6/uL (0.5-2.5); RETICULOCYTE COUNT % 4.76 % (0.5-1.5)
[2018-07-08] MEDS ORDERED: SODIUM CHLORIDE 0.9% 1,000ML IVBOLUS ONE (16:30)
[2018-07-08] MEDS ORDERED: ONDANSETRON 2MG/ML, 2ML IVPush ONE (16:30)
[2018-07-08] MEDS ORDERED: FENTANYL PF 100 MCG/2ML IV ONE (16:30)
--- NOTE | 2018-07-08 17:26 | NUR ---
pt resting on gurney. pt complains pain is 5/10. iv fluids still infusing, iv site clean and dry, no reddness or swelling. bp 96/50.
[2018-07-08] MEDS ORDERED: KETAMINE 10 MG/ML, 20ML ONE (17:54)
[2018-07-08] MEDS ORDERED: KETAMINE 10 MG/ML, 20ML IV ONE (18:00)
[2018-07-08] MEDS ORDERED: KETAMINE 100 MG/ML, 5ML IV ONE (18:00)
--- NOTE | 2018-07-08 18:49 | NUR ---
pt reports pain has decreased to a 4/10. VSS stable. no acute distress noted. juice and crackers provided per pt request.
[2018-07-08] MEDS ORDERED: HYDROmorphone 1 MG/ML, 1ML INJ IV ONE (19:30)
--- NOTE | 2018-07-08 19:32 | NUR ---
PT MEDICATED PER APR. PUT UP FOR RECHECK AT THIS TIME. PT DENIES FURTHER NEEDS.
[2018-07-08 20:04] VITALS: BP 116/74
== END 2018-07-08 20:07 | disposition home or self-care (01) ==
LOC: ED 14:31
DX: D57.00 Hb-SS disease with crisis, unspecified (principal); Z87.891 Personal history of nicotine dependence
CPT/HCPCS: 36415; 71046; 80048; 82040; 84484; 84703; 85025; 85045; 93005; 96372; 96374; 96375; 99284; J1170; J1885; J2405; J3010; J7030

== ENCOUNTER 2018-10-02 15:15 | Emergency (ER) | payer MEDICAID ==
[~2018-10-02] VITALS: Ht 165.1 cm; Wt 56.8 kg
[2018-10-02 16:27] VITALS: BP 131/65
== END 2018-10-02 18:06 | disposition home or self-care (01) ==
LOC: ED 16:36
DX: D57.00 Hb-SS disease with crisis, unspecified (principal); M79.652 Pain in left thigh; M79.651 Pain in right thigh; M54.5 Low back pain; Z90.49 Acquired absence of other specified parts of digestive tract
CPT/HCPCS: 36415; 71046; 80053; 81003; 84484; 84703; 85025; 93005; 96374; 96375; 96376; 99284; J1170; J2405; J7030

== ENCOUNTER 2019-01-04 03:14 | Emergency (ER) | payer MEDICAID ==
[~2019-01-04] VITALS: Ht 165.1 cm; Wt 58.1 kg
[2019-01-04] MEDS ORDERED: SODIUM CHLORIDE 0.9% 1,000ML IVBOLUS ONE (04:00)
[2019-01-04] MEDS ORDERED: KETOROLAC 30 MG/1 ML IVPush ONE (04:00)
[2019-01-04 04:02] LABS: ALANINE AMINOTRANSFERASE 21 U/L (12-78); ALBUMIN 3.8 g/dL (3.4-5.0); ANION GAP 8 mmol/L (5-15); CALCIUM 8.4 mg/dL (8.5-10.1); CHLORIDE 110 mmol/L (98-107); CREATININE 0.56 mg/dL (0.55-1.02)
[2019-01-04 04:06] LABS: ALKALINE PHOSPHATASE 63 U/L (45-117); BILIRUBIN,TOTAL 5.7 mg/dL (0.2-1.0); TOTAL PROTEIN 6.6 g/dL (6.4-8.2)
[2019-01-04 04:19] LABS: MEAN CORPUSCULAR HEMOGLOBIN 37.6 pg (27.0-34.8); MEAN CORPUSCULAR HGB CONC 34.3 g/dL (32.4-35.8); MEAN CORPUSCULAR VOLUME 109.6 fL (80-100); MEAN PLATELET VOLUME 7.2 fL (7.4-10.4); PLATELET COUNT 417 x10^3/uL (130-400); RED BLOOD COUNT 2.54 x10^6/uL (3.82-5.3); RED CELL DISTRIBUTION WIDTH 20.7 % (9.6-15.2)
[2019-01-04 04:21] LABS: MD YES
[2019-01-04] MEDS ORDERED: KETOROLAC 30 MG/1 ML ONE (04:24)
[2019-01-04 04:25] LABS: BASOS#(MANUAL) 0.18 x10^3/uL (0-0.1); BASOS% (MANUAL) 2 % (0-1); EOS#(MANUAL) 0.53 x10^3/uL (0.0-0.4); EOS% (MANUAL) 6 % (1-7); LYMPH#(MANUAL) 3.08 x10^3/uL (1-3.4); LYMPHS% (MANUAL) 35 % (22-44); MONOS#(MANUAL) 0.35 x10^3/uL (0.3-2.7); MONOS% (MANUAL) 4 % (2-9); MYELOCYTES# (MANUAL) 0.09 x10^3/uL (0-0); MYELOCYTES% (MANUAL) 1 % (0-0); NRBC % (MANUAL) 2 % (0-1); SEG#(MANUAL) 4.58 x10^3/uL (1.8-6.8); SEGS% (MANUAL) 52 % (42-75)
[2019-01-04 04:26] LABS: ANISOCYTOSIS 1+; HYPOCHROMIA 1+; OVALOCYTES 1+; POLYCHROMASIA 1+
[2019-01-04 04:27] LABS: <PLATELET ESTIMATE> INCREASED; SICKLE CELLS 2+; TARGET CELLS 1+
[2019-01-04 04:28] LABS: LARGE PLATELETS 1+
[2019-01-04 04:31] VITALS: BP 111/52
--- NOTE | 2019-01-04 04:32 | NUR ---
PT MEDICATED FOR PAIN. IVF STARTED.
[2019-01-04] MEDS ORDERED: MORPHINE SULFATE 4 MG/ML, 1ML ONE (04:55)
[2019-01-04] MEDS ORDERED: MORPHINE SULFATE 4 MG/ML, 1ML IVPush ONE (05:00)
== END 2019-01-04 05:25 | disposition home or self-care (01) ==
LOC: ED 05:00
DX: M54.5 Low back pain (principal); M79.652 Pain in left thigh; M79.651 Pain in right thigh; Z90.49 Acquired absence of other specified parts of digestive tract; Z87.891 Personal history of nicotine dependence
CPT/HCPCS: 36415; 80053; 84703; 85025; 96361; 96374; 96375; 99283; J1885; J2270; J7030

== ENCOUNTER 2019-02-10 06:13 | Emergency (ER) | payer MEDICAID ==
[~2019-02-10] VITALS: Ht 165.1 cm; Wt 55.1 kg
[2019-02-10] MEDS ORDERED: SODIUM CHLORIDE FLUSH 10ML SYR IVF ONE (06:30)
[2019-02-10] MEDS ORDERED: SODIUM CHLORIDE 0.9% 1,000ML IVBOLUS ONE ×2 (06:30→09:30)
[2019-02-10] MEDS ORDERED: KETOROLAC 30 MG/1 ML IVPush ONE (06:30)
[2019-02-10] MEDS ORDERED: KETOROLAC 30 MG/1 ML ONE (06:54)
[2019-02-10] MEDS ORDERED: ONDANSETRON 2MG/ML, 2ML ONE ×2 (06:54→10:11)
--- NOTE | 2019-02-10 06:56 | NUR ---
BEDSIDE REPORT FROM [facility], PT RESTING IN [facility], IVF INFUSING. PT MEDICATED WITH ZOFRAN AND TORADOL. CALL LIGHT WITHIN REACH
[2019-02-10 07:00] LABS: RED BLOOD COUNT 2.73 x10^6/uL (3.82-5.3)
[2019-02-10] MEDS ORDERED: ONDANSETRON 2MG/ML, 2ML IVPush ONE ×2 (07:00→10:00)
[2019-02-10 07:01] LABS: ALANINE AMINOTRANSFERASE 116 U/L (12-78); ALBUMIN 4.4 g/dL (3.4-5.0); ANION GAP 6 mmol/L (5-15); CHLORIDE 109 mmol/L (98-107)
[2019-02-10 07:06] LABS: ALKALINE PHOSPHATASE 70 U/L (45-117); BILIRUBIN,TOTAL 9.6 mg/dL (0.2-1.0); TOTAL PROTEIN 8.5 g/dL (6.4-8.2)
[2019-02-10 07:10] LABS: MEAN CORPUSCULAR HEMOGLOBIN 35.8 pg (27.0-34.8); MEAN CORPUSCULAR HGB CONC 34.2 g/dL (32.4-35.8); MEAN CORPUSCULAR VOLUME 104.5 fL (80-100); MEAN PLATELET VOLUME 7.7 fL (7.4-10.4); PLATELET COUNT 560 x10^3/uL (130-400); RED BLOOD COUNT 2.73 x10^6/uL (3.82-5.3)
[2019-02-10 07:13] LABS: MD YES
[2019-02-10 07:15] LABS: ANISOCYTOSIS 1+; EOS#(MANUAL) 0.17 x10^3/uL (0.0-0.4); EOS% (MANUAL) 1 % (1-7); LYMPH#(MANUAL) 1.99 x10^3/uL (1-3.4); LYMPHS% (MANUAL) 12 % (22-44); MONOS% (MANUAL) 3 % (2-9); NRBC % (MANUAL) 3 % (0-1); SEG#(MANUAL) 13.94 x10^3/uL (1.8-6.8); SEGS% (MANUAL) 84 % (42-75)
[2019-02-10 07:17] LABS: POLYCHROMASIA 2+; SICKLE CELLS 2+
[2019-02-10 07:19] LABS: TARGET CELLS 1+
[2019-02-10 07:20] LABS: <PLATELET ESTIMATE> INCREASED; LARGE PLATELETS 1+
[2019-02-10 07:21] LABS: OVALOCYTES 1+
--- NOTE | 2019-02-10 07:55 | NUR ---
PT REQUESTING MORE PAIN MEDS, PROVIDER NOTIFIED. URINE SENT TO LAB. PT RESTING IN [facility], CALL LIGHT WITHIN REACH.
[2019-02-10] MEDS ORDERED: MORPHINE SULFATE 4 MG/ML, 1ML IVPush ONE (08:00)
[2019-02-10 08:06] LABS: CULTURE INDICATED? YES; MICROSCOPIC INDICATED
[2019-02-10 08:21] LABS: RETICULOCYTE COUNT % 5.9 % (0.5-1.5)
[2019-02-10 08:22] LABS: ABSOLUTE RETICS # 0.161 x10^6/uL (0.5-2.5)
[2019-02-10] MEDS ORDERED: MORPHINE SULFATE 4 MG/ML, 1ML ONE ×2 (08:32→10:11)
--- NOTE | 2019-02-10 08:36 | NUR ---
PT MEDICATED WITH MORPHINE. UP FOR RECHECK
[2019-02-10] MEDS ORDERED: MORPHINE SULFATE 4 MG/ML, 1ML IVPush PRN (10:00)
[2019-02-10 10:02] VITALS: BP 111/74
== END 2019-02-10 07:47 | disposition home or self-care (01) ==
LOC: ED 06:30
DX: D57.00 Hb-SS disease with crisis, unspecified (principal); Z90.49 Acquired absence of other specified parts of digestive tract; Z88.0 Allergy status to penicillin
CPT/HCPCS: 36415; 80053; 81001; 84703; 85025; 85045; 87086; 87106; 96374; 96375; 96376; 99283; J1885; J2270; J2405; J7030

== ENCOUNTER 2019-04-24 04:04 | Emergency (ER) | payer MEDICAID ==
[~2019-04-24] VITALS: Ht 165.1 cm; Wt 56.3 kg
[2019-04-24 04:49] VITALS: BP 106/57
[2019-04-24] MEDS ORDERED: KETOROLAC 30 MG/1 ML ONE (04:53)
[2019-04-24] MEDS ORDERED: DIAZEPAM 5 MG TABLET ONE (04:53)
[2019-04-24] MEDS ORDERED: OXYcodone/APAP 5/325MG TABLET ONE (04:54)
[2019-04-24] MEDS ORDERED: KETOROLAC 30 MG/1 ML IM ONE (05:00)
[2019-04-24] MEDS ORDERED: DIAZEPAM 5 MG TABLET PO ONE (05:00)
[2019-04-24] MEDS ORDERED: OXYcodone/APAP 5/325MG TABLET PO ONE (05:00)
--- NOTE | 2019-04-24 05:04 | NUR ---
RN to bedside, patient educated on medications ordered. Patient agreeable. Also updated vitals including most recent temperature. Vital signs stable (see vital signs flowhseet) Rn returned, administered analgesic medications per provider order. Awaiting response.
--- NOTE | 2019-04-24 05:48 | NUR ---
RN to bedside informed of order placed for urinalysis. patient states is unable to urinate at the moment. Attempted to educate patient on bladder containging urine despite needing to pee. Patient declined despite education.
== END 2019-04-24 06:24 | disposition home or self-care (01) ==
LOC: ED 06:05
DX: S39.012A Strain of muscle, fascia and tendon of lower back, initial encounter (principal); X58.XXXA Exposure to other specified factors, initial encounter; Y93.89 Activity, other specified; Y92.89 Other specified places as the place of occurrence of the external cause; Y99.8 Other external cause status
CPT/HCPCS: 96372; 99283; J1885

== ENCOUNTER 2020-01-09 03:04 | Emergency (ER) | payer MEDICAID ==
[~2020-01-09] VITALS: Ht 165.1 cm; Wt 59.4 kg
[2020-01-09] MEDS ORDERED: ACETAMINOPHEN 500 MG TABLET PO ONE (04:00)
[2020-01-09] MEDS ORDERED: KETOROLAC 30 MG/1 ML ONE (04:00)
[2020-01-09] MEDS ORDERED: ONDANSETRON 2MG/ML, 2ML IVPush ONE (04:00)
[2020-01-09] MEDS ORDERED: KETOROLAC 30 MG/1 ML IVPush ONE (04:00)
[2020-01-09] MEDS ORDERED: HYDROmorphone 2 MG/ML, 1ML ONE ×4 (04:00→05:18)
[2020-01-09] MEDS ORDERED: ACETAMINOPHEN 500 MG TABLET ONE (04:00)
[2020-01-09] MEDS ORDERED: ONDANSETRON 2MG/ML, 2ML ONE (04:00)
[2020-01-09] MEDS: HYDROmorphone 2 MG/ML, 1ML IVPush PRN ×4 (04:13→05:22)
[2020-01-09] MEDS ORDERED: SODIUM CHLORIDE 0.9% 1,000ML IVBOLUS ONE (04:30)
--- NOTE | 2020-01-09 04:31 | NUR ---
PT HAS A HX OF SICKEL CELL ANEMIA WITH "SICKEL CELL CRISIS ABOUT EVERY MONTH." PT STATES NORMALLY SHE FEELS PAIN IN HER LOWER BACK AND LEGS. TODAY IS DIFFERENT BECAUSE "ACHYING CP" WOKE HER FROM SLEEP, ASSOCIATED SOB. PT STATES SHE ALSO HAS RIB PAIN WHEN SHE BREATHES. PT'S EYES JAUNDICED, STATES BASELINE. PT CONNECTED TO ALL MONITORS. RESPIRATIONS EVEN AND UNLABORED. PT TALKING ON THE PHONE WITH HER MOM. PT PROVIDED [facility] WARM BLANKETS AND HEATER HOSE.
[2020-01-09 04:35] LABS: ABSOLUTE RETICS # 0.244 x10^6/uL (0.5-2.5); MEAN CORPUSCULAR HEMOGLOBIN 37.7 pg (27.0-34.8); MEAN CORPUSCULAR HGB CONC 35.7 g/dL (32.4-35.8); MEAN PLATELET VOLUME 7.4 fL (7.4-10.4); PLATELET COUNT 393 x10^3/uL (130-400); RED BLOOD COUNT 2.27 x10^6/uL (3.82-5.3); RED CELL DISTRIBUTION WIDTH 18.8 % (9.6-15.2); RETICULOCYTE COUNT % 10.75 % (0.5-1.5)
[2020-01-09 04:45] LABS: ALBUMIN 3.8 g/dL (3.4-5.0); ANION GAP 7 mmol/L (5-15); CALCIUM 8.3 mg/dL (8.5-10.1); CHLORIDE 110 mmol/L (98-107); CREATININE 0.53 mg/dL (0.55-1.02)
[2020-01-09 05:12] LABS: MD YES
[2020-01-09 05:15] LABS: EOS#(MANUAL) 0.36 x10^3/uL (0.0-0.4); EOS% (MANUAL) 4 % (1-7); LYMPH#(MANUAL) 3.42 x10^3/uL (1-3.4); LYMPHS% (MANUAL) 38 % (22-44); MONOS#(MANUAL) 0.63 x10^3/uL (0.3-2.7); MONOS% (MANUAL) 7 % (2-9); SEG#(MANUAL) 4.59 x10^3/uL (1.8-6.8); SEGS% (MANUAL) 51 % (42-75)
[2020-01-09 05:16] LABS: <PLATELET ESTIMATE> ADEQUATE; ANISOCYTOSIS 1+; OVALOCYTES 1+; POLYCHROMASIA 1+; SICKLE CELLS 2+; TARGET CELLS 1+
[2020-01-09 05:17] LABS: LARGE PLATELETS 1+
[2020-01-09] MEDS ORDERED: HYDROmorphone 1 MG/ML, 1ML INJ ONE (05:39)
--- NOTE | 2020-01-09 05:45 | NUR ---
PT HAS REMAINED AWAKE AND ALERT WHILE IN THE ER. ERP BACK TO BEDSIDE TO UPDATE PT ON POC. ALL QUESTIONS ANSWERED.
[2020-01-09] MEDS ORDERED: HYDROmorphone 1 MG/ML, 1ML INJ IVPush ONE (06:00)
[2020-01-09 06:32] VITALS: BP 106/59
--- NOTE | 2020-01-09 06:44 | NUR ---
NO BLOOD TRANSFUSION FOR THIS PT. MD ALARCON STATES NOT TO ADMINISTER BLOOD. PT STATES SHE WOULD REFUSE BLOOD IF IT WERE ADVISED TO HER. BLOOD BANK CALLED AND UPDATED.
== END 2020-01-09 06:47 | disposition home or self-care (01) ==
LOC: ED 04:19
DX: R07.89 Other chest pain (principal); D57.00 Hb-SS disease with crisis, unspecified; R00.0 Tachycardia, unspecified; Z90.49 Acquired absence of other specified parts of digestive tract
CPT/HCPCS: 36415; 71045; 80048; 82040; 84703; 85025; 85045; 86850; 86870; 86900; 86902; 86922; 93005; 96361; 96374; 96376; 99285; J1170; J7030; 86923

== ENCOUNTER 2020-11-07 05:24 | Emergency (ER) | payer MEDICAID ==
[~2020-11-07] VITALS: Ht 165.1 cm; Wt 58.6 kg
[~2020-11-07 05:24] MED LIST changes: -FOLI-17 PO; +FOLI1TAB32 PO
[2020-11-07] MEDS ORDERED: MORPHINE SULFATE 4 MG/ML, 1ML ONE ×2 (05:55→07:02)
[2020-11-07] MEDS: MORPHINE SULFATE 4 MG/ML, 1ML IVPush PRN ×2 (05:58→07:04)
[2020-11-07] MEDS ORDERED: SODIUM CHLORIDE FLUSH 10ML SYR IVF ONE (06:00)
[2020-11-07] MEDS ORDERED: SODIUM CHLORIDE 0.9% 1,000ML IV ONE (06:00)
[2020-11-07 06:21] LABS: ABSOLUTE RETICS # 0.204 x10^6/uL (0.5-2.5); BASOPHILS % (AUTO) 1 % (0-1); EOSINOPHILS % (AUTO) 1 % (1-7); LYMPHOCYTES % (AUTO) 11 % (22-44); MEAN CORPUSCULAR HGB CONC 35.5 g/dL (32.4-35.8); MONOCYTES % (AUTO) 8 % (2-9); NEUTROPHILS % (AUTO) 78 % (42-75); PLATELET COUNT 378 x10^3/uL (130-400); RED CELL DISTRIBUTION WIDTH 16.3 % (9.6-15.2)
[2020-11-07 06:46] LABS: <PLATELET ESTIMATE> ADEQUATE; ANISOCYTOSIS 1+; OVALOCYTES 1+; POLYCHROMASIA 1+; TARGET CELLS 1+
[2020-11-07 06:47] LABS: LARGE PLATELETS 1+
[2020-11-07 06:48] LABS: HOWELL-JOLLY BODIES 1+
[2020-11-07 06:50] LABS: SICKLE CELLS 2+
[2020-11-07 08:41] VITALS: BP 103/55
--- NOTE | 2020-11-07 08:42 | NUR ---
PT REC'VD DISCHARGE INSTRUCTIONS AND EDUCATION. PT HAD NO FURTHER QUESTIONS.
== END 2020-11-07 09:14 | disposition home or self-care (01) ==
LOC: ED 06:10
DX: M54.5 Low back pain (principal); D57.00 Hb-SS disease with crisis, unspecified; Z90.49 Acquired absence of other specified parts of digestive tract
CPT/HCPCS: 36415; 85025; 85045; 96361; 96374; 96376; 99284; J2270; J7030